=== PATIENT | female | born 2000 | race Caucasian/White ===

== ENCOUNTER 2018-05-30 15:48 | Emergency (ER) | payer OTHER, MEDICAID, SELFPAY ==
[2018-05-30 15:49] VITALS: BP 141/91; PULSE 122; RESP 17; TEMP 36.6; O2SAT 98; BMI 38.9
--- NOTE | 2018-05-30 16:19 | ED.VISSUMM ---
- ER Visit Summary Date of Service: 05/30/18 Chief Complaint: Sore throat History of Present Illness: The patient is a 17 F who presents for severe sore throat. Patient states she has had respiratory symptoms for 2 weeks, starting with sinus congestion and drainage, progressing to right ear pain and then throat pain. She developed a severe sore throat on Sunday and was seen at urgent care. She was told it could be allergies, viral or bacterial, so they started her on amoxicillin and told her if it was not better in 24 hours it was likely not bacterial. She is taking amoxicillin 3 times a day since Sunday but has had worsening of her sore throat. It is worse on the right, and she is having difficulty swallowing, pain with swallowing and breathing, and difficulty sleeping because of the pain. She is taking Tylenol to help with pain. She has subjective fevers. She denies nausea, vomiting, cough, stiff neck, headache or other complaints at this time. She has a history of hypertension. Physical Examination: Vital signs: afebrile, tachycardic at 122, no hypoxia on room air General: well nourished, well developed, in no distress Skin: warm, dry, no rash, no pallor HEENT: normocephalic and atraumatic; PERRL, EOMI, TMs are rodas and pearly with good light reflex, no bulging or erythema, no dullness. Patient has tender lymphadenopathy bilateral anterior chains, right greater than left. No meningismus. Full range of motion, neck is supple. Oropharynx shows significant asymmetry to the tonsils, with exudate, erythema and swelling of the right tonsil, and mild erythema of the left tonsil. No sublingual or submandibular fullness. Patient's voice is mildly muffled. Moist mucous membranes Cardiovascular: Tachycardic rate and rhythm without murmurs, no peripheral edema, 2+ pulses all distal extremities Respiratory: No increased work of breathing, lungs are clear to auscultation bilaterally, no rales, rhonchi or wheezing Abdominal: Abdomen is soft, nontender with normoactive bowel sounds, no guarding or rebound, no masses MSK: Moves all extremities, no deformities, normal strength Neuro: Awake and alert, oriented ?4. No facial droop, sensation and motor function intact and symmetric Test Results: Abnormal Lab Results 05/30/18 05/30/18 05/30/18 16:42 16:42 16:55 WBC 13.5 H RBC 5.05 Hgb 14.6 Hct 43.5 MCV 86.1 MCH 28.9 MCHC 33.6 RDW 12.5 RDW Differential 39.2 Plt Count 173 MPV 10.6 Immature Gran % (Auto) 0.100 Neut % (Auto) 16.5 L Lymph % (Auto) 74.0 H [place] % (Auto) 5.5 Eos % (Auto) 0.1 Baso % (Auto) 3.8 H Absolute Neuts (auto) 2.2 Absolute Lymphs (auto) 10.00 H Total Counted Not Reportable Diff Path Review May foll Atypical Lymphocytes RARE Reactive Lymphocytes 2+ Smudge Cells RARE Sodium 138 Potassium 3.9 Chloride 105 Carbon Dioxide 24.0 Anion Gap 9 BUN 6 L Creatinine 0.83 Estim Creat Clear Calc 98.10 Est GFR (MDRD) Af Amer 113 Est GFR (MDRD) Non-Af 94 BUN/Creatinine Ratio 7.2 L Glucose 92 Lactic Acid 1.2 Calcium 8.9 Serum , Qual 05/30/18 16:55 WBC RBC Hgb Hct MCV MCH MCHC RDW RDW Differential Plt Count MPV Immature Gran % (Auto) Neut % (Auto) Lymph % (Auto) [place] % (Auto) Eos % (Auto) Baso % (Auto) Absolute Neuts (auto) Absolute Lymphs (auto) Total Counted Diff Path Review Atypical Lymphocytes Reactive Lymphocytes Smudge Cells Sodium Potassium Chloride Carbon Dioxide Anion Gap BUN Creatinine Estim Creat Clear Calc Est GFR (MDRD) Af Amer Est GFR (MDRD) Non-Af BUN/Creatinine Ratio Glucose Lactic Acid Calcium Serum , Qual NEGATIVE Clinical Impression(s) from Imaging Studies Soft Tissue Neck CT 05/30/18 16:17 IMPRESSION: Possible tonsillitis and nonspecific reactive lymphadenopathy. No peritonsillar abscess noted. Electronically Signed: Brian Guzman MD at 17:43 EDT , Service support , Medications Given Discontinued Medications Dexamethasone Sodium Phosphate (Decadron) 8 mg PO.IVFORM X1 ONE Stop: 05/30/18 16:18 Last Admin: 05/30/18 16:50 Dose: 8 mg Sodium Chloride () 1,000 mls @ 1,000 mls/hr IV .Q1H ONE Stop: 05/30/18 17:14 Last Admin: 05/30/18 16:50 Dose: 1,000 mls/hr Ketorolac Tromethamine (Toradol) 15 mg IV X1 ONE Stop: 05/30/18 16:16 Last Admin: 05/30/18 16:51 Dose: 15 mg Emergency Department Course and Treatment: Patient presents with examination concerning for peritonsillar abscess or even possible deep space infection, given the history of subjective fever and the tachycardia, as well as progression while on antibiotics. It is also possible this is a viral pharyngitis and thus unresponsive to antibiotics patient was given a dose of Decadron to help with her symptoms. She was also given Toradol. She was given IV fluids. Lab work performed showing a leukocytosis of 13.5 with a lymphocyte predominance. Lactate 1.2. negative. CT soft tissue neck was performed that showed no deep space infections and no peritonsillar abscess. Because of the lymphocyte dominance on lab work, as well as earlier to improve on antibiotics with no abscess or deep space infection noted, this supports patient's symptoms as being viral in nature on reevaluation patient's heart rate had improved to 90. She felt much better and was able to swallow without pain. She had no more complaints of difficulty breathing. Patient will continue using [id number] medication for symptomatic relief. She was given 1 dose of Decadron by prescription to take in 2 days if she begins having worsening of her symptoms again. Patient was given follow-up with her primary care doctor. Patient discharged home in improved condition.. Treatment Plan: [] Disposition: [] Impression: Acute tonsillitis, viral This note was generated with [employer] dictation software. It may contain incorrect words, spelling, and punctuation that were not noted in review of the chart prior to signing ED Disposition - Plan for ED Patient: Disposition: Home or Assisted Living Chief Complaint: Sore Throat Instructions: ED Pharyngitis Viral Prescriptions: Dexamethasone [Decadron] 6 mg PO DAILY PRN 1 Days #1 tab PRN Reason: throat pain Referrals: Milo Case MD [STAFF PHYSICIAN] - 3-5 Days if not improving Wilder Goodwin MD [Primary Care Provider] - Additional Instructions: It is unlikely that your sore throat is from a bacterial infection, thus you can stop taking the antibiotic. Continue using Tylenol or Motrin as needed for pain. Drink plenty of fluids to stay hydrated. If you have return of the severe throat pain and difficulty swallowing, you may fill the dexamethasone (steroid) prescription and take the additional dose. If you have any worsening of your condition or any new concerning symptoms, please return immediately to the emergency department for another evaluation.
--- NOTE | 2018-05-30 16:23 | ED.DCSUM_ITS ---
- ER Visit Summary Date of Service: 05/30/18 Chief Complaint: Sore throat History of Present Illness: The patient is a 17 F who presents for severe sore throat. Patient states she has had respiratory symptoms for 2 weeks, starting with sinus congestion and drainage, progressing to right ear pain and then throat pain. She developed a severe sore throat on Sunday and was seen at urgent care. She was told it could be allergies, viral or bacterial, so they started her on amoxicillin and told her if it was not better in 24 hours it was likely not bacterial. She is taking amoxicillin 3 times a day since Sunday but has had worsening of her sore throat. It is worse on the right, and she is having difficulty swallowing, pain with swallowing and breathing, and difficulty sleeping because of the pain. She is taking Tylenol to help with pain. She has subjective fevers. She denies nausea, vomiting, cough, stiff neck, headache or other complaints at this time. She has a history of hypertension. Physical Examination: Vital signs: afebrile, tachycardic at 122, no hypoxia on room air General: well nourished, well developed, in no distress Skin: warm, dry, no rash, no pallor HEENT: normocephalic and atraumatic; PERRL, EOMI, TMs are rodas and pearly with good light reflex, no bulging or erythema, no dullness. Patient has tender lymphadenopathy bilateral anterior chains, right greater than left. No meningismus. Full range of motion, neck is supple. Oropharynx shows significant asymmetry to the tonsils, with exudate, erythema and swelling of the right tonsil, and mild erythema of the left tonsil. No sublingual or submandibular fullness. Patient's voice is mildly muffled. Moist mucous membranes Cardiovascular: Tachycardic rate and rhythm without murmurs, no peripheral edema , 2+ pulses all distal extremities Respiratory: No increased work of breathing, lungs are clear to auscultation bilaterally, no rales, rhonchi or wheezing Abdominal: Abdomen is soft, nontender with normoactive bowel sounds, no guarding or rebound, no masses MSK: Moves all extremities, no deformities, normal strength Neuro: Awake and alert, oriented ?4. No facial droop, sensation and motor function intact and symmetric Test Results: Abnormal Lab Results 05/30/18 05/30/18 05/30/18 16:42 16:42 16:55 WBC 13.5 H RBC 5.05 Hgb 14.6 Hct 43.5 MCV 86.1 MCH 28.9 MCHC 33.6 RDW 12.5 RDW Differential 39.2 Plt Count 173 MPV 10.6 Immature Gran % (Auto) 0.100 Neut % (Auto) 16.5 L Lymph % (Auto) 74.0 H [place] % (Auto) 5.5 Eos % (Auto) 0.1 Baso % (Auto) 3.8 H Absolute Neuts (auto) 2.2 Absolute Lymphs (auto) 10.00 H Total Counted Not Reportable Diff Path Review May foll Atypical Lymphocytes RARE Reactive Lymphocytes 2+ Smudge Cells RARE Sodium 138 Potassium 3.9 Chloride 105 Carbon Dioxide 24.0 Anion Gap 9 BUN 6 L Creatinine 0.83 Estim Creat Clear Calc 98.10 Est GFR (MDRD) Af Amer 113 Est GFR (MDRD) Non-Af 94 BUN/Creatinine Ratio 7.2 L Glucose 92 Lactic Acid 1.2 Calcium 8.9 Serum , Qual 05/30/18 16:55 WBC RBC Hgb Hct MCV MCH MCHC RDW RDW Differential Plt Count MPV Immature Gran % (Auto) Neut % (Auto) Lymph % (Auto) [place] % (Auto) Eos % (Auto) Baso % (Auto) Absolute Neuts (auto) Absolute Lymphs (auto) Total Counted Diff Path Review Atypical Lymphocytes Reactive Lymphocytes Smudge Cells Sodium Potassium Chloride Carbon Dioxide Anion Gap BUN Creatinine Estim Creat Clear Calc Est GFR (MDRD) Af Amer Est GFR (MDRD) Non-Af BUN/Creatinine Ratio Glucose Lactic Acid Calcium Serum , Qual NEGATIVE Clinical Impression(s) from Imaging Studies Soft Tissue Neck CT 05/30/18 16:17 IMPRESSION: Possible tonsillitis and nonspecific reactive lymphadenopathy. No peritonsillar abscess noted. Electronically Signed: Brian Guzman MD at 17:43 EDT , Service support , Medications Given Discontinued Medications Dexamethasone Sodium Phosphate (Decadron) 8 mg PO.IVFORM X1 ONE Stop: 05/30/18 16:18 Last Admin: 05/30/18 16:50 Dose: 8 mg Sodium Chloride () 1,000 mls @ 1,000 mls/hr IV .Q1H ONE Stop: 05/30/18 17:14 Last Admin: 05/30/18 16:50 Dose: 1,000 mls/hr Ketorolac Tromethamine (Toradol) 15 mg IV X1 ONE Stop: 05/30/18 16:16 Last Admin: 05/30/18 16:51 Dose: 15 mg Emergency Department Course and Treatment: Patient presents with examination concerning for peritonsillar abscess or even possible deep space infection, given the history of subjective fever and the tachycardia, as well as progression while on antibiotics. It is also possible this is a viral pharyngitis and thus unresponsive to antibiotics patient was given a dose of Decadron to help with her symptoms. She was also given Toradol. She was given IV fluids. Lab work performed showing a leukocytosis of 13.5 with a lymphocyte predominance. Lactate 1.2. negative. CT soft tissue neck was performed that showed no deep space infections and no peritonsillar abscess. Because of the lymphocyte dominance on lab work, as well as earlier to improve on antibiotics with no abscess or deep space infection noted, this supports patient's symptoms as being viral in nature on reevaluation patient's heart rate had improved to 90. She felt much better and was able to swallow without pain. She had no more complaints of difficulty breathing. Patient will continue using [id number] medication for symptomatic relief. She was given 1 dose of Decadron by prescription to take in 2 days if she begins having worsening of her symptoms again. Patient was given follow-up with her primary care doctor. Patient discharged home in improved condition.. Treatment Plan: [] Disposition: [] Impression: Acute tonsillitis, viral This note was generated with [employer] dictation software. It may contain incorrect words, spelling, and punctuation that were not noted in review of the chart prior to signing ED Disposition - Plan for ED Patient: Disposition: Home or Assisted Living Chief Complaint: Sore Throat Instructions: ED Pharyngitis Viral Prescriptions: Dexamethasone [Decadron] 6 mg PO DAILY PRN 1 Days #1 tab PRN Reason: throat pain Referrals: Milo Case MD [STAFF PHYSICIAN] - 3-5 Days if not improving Wilder Goodwin MD [Primary Care Provider] - Additional Instructions: It is unlikely that your sore throat is from a bacterial infection, thus you can stop taking the antibiotic. Continue using Tylenol or Motrin as needed for pain. Drink plenty of fluids to stay hydrated. If you have return of the severe throat pain and difficulty swallowing, you may fill the dexamethasone ( steroid) prescription and take the additional dose. If you have any worsening of your condition or any new concerning symptoms, please return immediately to the emergency department for another evaluation.
[2018-05-30] MEDS: 0.9% Normal Saline 1,000 ML 1000 ML IV (16:50)
[2018-05-30] MEDS: Ketorolac 15 MG/ML Vial IV (16:51)
[2018-05-30 17:23] LABS: Anion Gap 9 (5-15); BUN 6 mg/dL (7-18); BUN/Creat Ratio 7.2 RATIO (10-20); Calcium,Total 8.9 mg/dL (8.5-10.1); Chloride 105 mmol/L (98-107); Creatinine, Serum 0.83 mg/dL (0.55-1.02); EST Glomerular Filtration Rate 94 mL/min (>60); Est Glom Filt Rate - Afr Amer 113 mL/min (>60); Glucose 92 mg/dL (74-106); Potassium 3.9 mmol/L (3.5-5.1); Sodium Level 138 mmol/L (136-145)
[2018-05-30 17:29] LABS: Pregnancy, Serum, hCG Quali. NEGATIVE Negative (0-9 Nonpreg)
[2018-05-30 17:41] LABS: Lactic Acid 1.2 mmol/L (0.4-2.0)
[2018-05-30 17:43] LABS: Absolute Neutrophil Count 2.2 X10^3/uL (2.0-7.7); Basophil# 0.51 X10^3/uL; Basophil% 3.8 % (0-1); Differential Indicated SCAN CRITERIA MET; Eosinophil# 0.02 X10^3/uL; Eosinophils% 0.1 % (0-5); Hematocrit 43.5 % (37-47); Hemoglobin 14.6 g/dl (12.0-15.0); Mean Corp Hgb Conc 33.6 g/gl (32-36); Mean Corpuscular Hgb 28.9 pg (27.0-32.0); Mean Corpuscular Volume 86.1 fL (81-99); Mean Platelet Vol. 10.6 fl (6.2-12.0); Monocyte# 0.74 X10^3/uL; Monocyte% 5.5 % (0-10); Neutrophil # 2.23 X10^3/uL (2.7-7.7); Neutrophil % 16.5 % (47-70); POSITIVE COUNT NO; POSITIVE DIFFERENTIAL YES; POSITIVE MORPHOLOGY YES; Platelet Count 173 K/mm3 (150-450); RBC Distribution Width CV 12.5 % (11.6-14.6); RBC Distribution Width SD 39.2 fl (35.1-43.9); Red Blood Count 5.05 M/mm3 (4.2-5.4); White Blood Count 13.5 K/mm3 (4.4-11.0)
[2018-05-30 17:57] VITALS: BP 130/78; PULSE 84; RESP 16; O2SAT 99
[2018-05-30 18:12] LABS: Reactive Lymphocyte 2+
[2018-05-30 18:14] LABS: Smudge Cells RARE
[2018-05-30 18:15] LABS: Atypical Lymphocyte RARE %
--- NOTE | 2018-05-30 19:10 | DCINST.ED_ITS ---
ED Disposition - Plan for ED Patient: Chief Complaint: Sore Throat Instructions: ED Pharyngitis Viral Prescriptions: Dexamethasone [Decadron] 6 mg PO DAILY PRN 1 Days #1 tab PRN Reason: throat pain Referrals: Wilder Goodwin MD [Primary Care Provider] - Milo Case MD [STAFF PHYSICIAN] - 3-5 Days if not improving Additional Instructions: It is unlikely that your sore throat is from a bacterial infection, thus you can stop taking the antibiotic. Continue using Tylenol or Motrin as needed for pain. Drink plenty of fluids to stay hydrated. If you have return of the severe throat pain and difficulty swallowing, you may fill the dexamethasone ( steroid) prescription and take the additional dose. If you have any worsening of your condition or any new concerning symptoms, please return immediately to the emergency department for another evaluation.
[2018-05-30 19:34] VITALS: BP 149/87; PULSE 91; RESP 16; O2SAT 98
[2018-06-03 10:05] LABS: Pathologist Review Reviewed
== END 2018-05-30 19:35 | disposition home or self-care (01) ==
PROVIDERS: Emergency Provider Emergency Medicine; Family Provider Pediatrics; PCP Pediatrics
DX: J03.90 Acute tonsillitis, unspecified (principal); I10 Essential (primary) hypertension; R00.0 Tachycardia, unspecified; Z72.0 Tobacco use
CPT/HCPCS: 70491; 80048; 83605; 84703; 85025; 96361; 96374; 99284; J7030; Q9967; A4216

== ENCOUNTER 2018-06-02 13:42 | Emergency (ER) | payer OTHER, MEDICAID, SELFPAY ==
[2018-06-02 13:42] VITALS: BP 149/93; PULSE 120; RESP 18; TEMP 36.6; O2SAT 98; BMI 38.2
--- NOTE | 2018-06-02 14:51 | ED.VISSUMM ---
- ER Visit Summary Date of Service: 06/02/18 Chief Complaint: Sore throat History of Present Illness: The patient is a 17 F who presents with a sore throat that has been waxing and waning over the past 2 weeks. Patient states she was seen here and was given a prescription for amoxicillin. Patient states she is currently taking the amoxicillin. Patient states she was also given a dose of Decadron which helped. She states she was given 1 tablet of Decadron to go home with. Patient states she took that 2 days later which also helped. Patient states her pain is getting worse. Patient denies any fevers or chills. Patient denies any cough. Patient states her pain is worse with swallowing. Physical Examination: Vital signs are stable. Patient is afebrile. Patient is in no acute distress. Tympanic membranes are clear bilaterally. Oral mucosa is pink and moist. There is a white exudate noted on the tonsil on the right. Neck is supple. Trachea is midline. There is no cervical adenopathy noted. Heart was regular rate and rhythm. Lungs are clear and equal bilateral. There is good respiratory effort noted. Remaining physical exam is within normal limits. Emergency Department Course and Treatment: Since the patient is currently on amoxicillin I do not feel patient needs a rapid strep test done at this time. Patient was given a prescription for prednisone. Patient was instructed to follow-up with her primary care physician in 5-7 days. Patient understood and was agreeable with the plan. All questions were answered. Disposition: Discharge home Impression: Pharyngitis This note was generated with [employer] dictation software. It may contain incorrect words, spelling, and punctuation that were not noted in review of the chart prior to signing ED Disposition - Plan for ED Patient: Disposition: Home or Assisted Living Chief Complaint: Sore Throat Diagnosis: Pharyngitis Instructions: ED Strep Pharyngitis Poss Prescriptions: Prednisone [Deltasone] 60 mg PO DAILY #15 tab Referrals: Wilder Goodwin MD [NON-STAFF] -
== END 2018-06-02 15:09 | disposition home or self-care (01) ==
PROVIDERS: Emergency Provider Emergency Medicine
DX: J02.9 Acute pharyngitis, unspecified (principal); I10 Essential (primary) hypertension; Z72.0 Tobacco use
CPT/HCPCS: 99282

== ENCOUNTER 2018-10-30 12:32 | Emergency (ER) | payer OTHER, MEDICAID, SELFPAY ==
[2018-10-30 12:33] VITALS: BP 153/86; PULSE 126; RESP 14; TEMP 36.7; O2SAT 98; BMI 41.4
--- NOTE | 2018-10-30 13:03 | ED.DCSUM_ITS ---
- ER Visit Summary Date of Service: 10/30/18 Chief Complaint: Right lower posterior jaw pain History of Present Illness: The patient is a 17 F no significant past medical or surgical history. Reportedly not . Patient states for the last 3 days she has had right lower jaw pain with some mild swelling. No fever. No chills. No trauma. Physical Examination: Well-appearing young female. Vital signs are stable afebrile. She is in no distress. H EENT exam shows very good appearing dentition. There is no signs of infection. No cavities. She is able to open and close her jaw. She does have tenderness all around her last right lower molar. There is no abscess. There is no significant facial swelling. There is no trismus. She has no malocclusion. There is no gum swelling. Neck nontender no lymphadenopathy. Lungs clear to auscultation bilaterally. Heart regular rate and rhythm no murmur. Abdomen soft nontender. Otherwise exam unremarkable. Test Results: None Emergency Department Course and Treatment: To be started on Pen-Vee K in case there is an infection by explained her I do not see any signs of infection at this time. This may or may not be an impacted wisdom tooth. Motrin for pain. Ice. Treatment Plan: Follow-up with Dr. Jasson Pope for further evaluation or an oral surgeon in her insurance plan. Disposition: Discharge Impression: Acute right lower jaw pain uncertain etiology Rule out infection versus impacted wisdom tooth This note was generated with [employer] dictation software. It may contain incorrect words, spelling, and punctuation that were not noted in review of the chart prior to signing ED Disposition - Plan for ED Patient: Chief Complaint: Dental Referrals: Care Physician,No Primary [Primary Care Provider] -
--- NOTE | 2018-10-30 13:03 | ED.DEP ---
ED Disposition - Plan for ED Patient: Disposition: Home or Assisted Living Chief Complaint: Dental Instructions: ED Tooth Pain Prescriptions: Fluconazole [Diflucan] 200 mg PO X1 #1 tab Penicillin Vk [Pen-Vee K , V-Cillin K] 500 mg PO 4X/DAY #30 tab Referrals: Jasson Pope DDS [STAFF PHYSICIAN] - As soon as possible Additional Instructions: Motrin for pain and inflammation 6-800 mg 3 times a day. Ice to your right lower jaw. Penicillin 1 pill 4 times a day in case there may be an infection at this time I do not see any obvious signs of infection. Call follow-up with Dr. Jasson Ppoe and oral surgeon for further evaluation.
[2018-10-30] MEDS: HYDROcodone Bitartrate/Apap 5/325 Tablet PO (13:32)
[2018-10-30 13:33] VITALS: BP 158/112
--- OUTSIDE RECORDS SUMMARY | 2019-01-01 12:11 | XMS RPT_ITS ---
:2000 Author Organization [facility] Care Team Providers Name Role Phone Jessy Alvarez Attending Unavailable PROVIDER, UNKNOWN Primary Care Unavailable PROVIDER, UNKNOWN Referring Unavailable PROVIDER, UNKNOWN Referring Unavailable PROVIDER, UNKNOWN Primary Care Unavailable Jessy Alvarez Attending Unavailable Jessy Alvarez Attending Unavailable PROVIDER, UNKNOWN Referring Unavailable PROVIDER, UNKNOWN Primary Care Unavailable Primay Care Physicia, No Primary Care Unavailable Alli Loza Attending Unavailable VIBHA GOODWIN Primary Care Unavailable Jessy Solorzano Attending Unavailable Bryon Gusman Attending Unavailable Primay Care Physicia, No Primary Care Unavailable PROBLEMS PROBLEMS DATE TYPE CONDITION / CODE ATTENDING STATUS SOURCE 06/07/2018 Unknown J02.9 - Acute Bryon Gusman Active [facility] pharyngitis, Community unspecified / Hospital J02.9(ICD-10) Repository 05/20/2018 Admitting Elevated Jessy Alvarez [employer] Diagnosis blood-pressure System reading, w/o Repository diagnosis of htn / R03.0(ICD-10) 05/20/2018 Admitting Headache / Jessy Alvarez Active [facility] R51(ICD-10) System Repository 05/08/2018 Admitting Essential Jessy Alvarez Active [facility] (primary) System hypertension / Repository I10(ICD-10) 05/06/2018 Admitting Hyperglycemia, Jessy Alvarez Active [facility] Diagnosis unspecified / System R73.9(ICD-10) Repository 05/06/2018 Admitting Chest pain, Jessy Alvarez Active [facility] Diagnosis unspecified / System R07.9(ICD-10) Repository PROCEDURES PROCEDURES No Procedure Records FoundRESULTS RESULTS EMERGENCY DEPARTMENT Observed: 10/30/2018 Status: F Source: TILLY SUMMARY 3:27 PM [facility] REPOSITORY [facility] Medical Records Department [address] [place] [address] Emergency Department Summary 10/30/18 1301 MR#: [id number] Acct: [id number] Name: GORDO GUTHRIE Rep #: [id number] : 2000 From: Alli Loza MD PCP: Care Physician, No Primary Status: DEP ER - ER Visit Summary Date of Service: 10/30/18 Chief Complaint: Right lower posterior jaw pain History of Present Illness: The patient is a 17 F no significant past medical or surgical history. Reportedly not . Patient states for the last 3 days she has had right lower jaw pain with some mild swelling. No fever. No chills. No trauma. Physical Examination: Well-appearing young female. Vital signs are stable afebrile. She is in no distress. H EENT exam shows very good appearing dentition. There is no signs of infection. No cavities. She is able to open and close her jaw. She does have tenderness all around her last right lower molar. There is no abscess. There is no significant facial swelling. There is no trismus. She has no malocclusion. There is no gum swelling. Neck nontender no lymphadenopathy. Lungs clear to auscultation bilaterally. Heart regular rate and rhythm no murmur. Abdomen soft nontender. Otherwise exam unremarkable. Test Results: None Emergency Department Course and Treatment: To be started on Pen-Vee K in case there is an infection by explained her I do not see any signs of infection at this time. This may or may not be an impacted wisdom tooth. Motrin for pain. Ice. Treatment Plan: Follow-up with Dr. Jasson Pope for further evaluation or an oral surgeon in her insurance plan. Disposition: Discharge Impression: Acute right lower jaw pain uncertain etiology Rule out infection versus impacted wisdom tooth This note was generated with Outlisten dictation software. It may contain incorrect words, spelling, and punctuation that were not noted in review of the chart prior to signing ED Disposition - Plan for ED Patient: Chief Complaint: Dental Referrals: Care Physician,No Primary [Primary Care Provider] - What to do if you have Problems For any increased pain, shortness of breath, bleeding, nausea or vomiting, chest pain, or any unexpected problems, contact your Primary Care Provider. Call [facility] ([phone]) or report to the closest Emergency Room. Call 911 if necessary. 10/30/18 1527 <Electronically signed by Alli Loza MD> Date Alli Loza MD Cosigner Signature (If Indicated): Date CC: No Primary Care Physician DISCHARGE INSTRUCTION Observed: 10/30/2018 Status: F Source: TILLY 3:27 PM [facility] REPOSITORY [facility] Medical Records Department [address] [place] [address] Discharge Instruction 10/30/18 1303 MR#: [id number] Acct: [id number] Name: GORDO GUTHRIE Rep #: [id number] : 2000 17 From: Alli Loza MD PCP: Care Physician, No Primary Status: DEP ER ED Disposition - Plan for ED Patient: Disposition: Home or Assisted Living Chief Complaint: Dental Instructions: ED Tooth Pain Prescriptions: Fluconazole [Diflucan] 200 mg PO X1 #1 tab Penicillin Vk [Pen-Vee K , V-Cillin K] 500 mg PO 4X/DAY #30 tab Referrals: Jasson Pope DDS [STAFF PHYSICIAN] - As soon as possible Additional Instructions: Motrin for pain and inflammation 6-800 mg 3 times a day. Ice to your right lower jaw. Penicillin 1 pill 4 times a day in case there may be an infection at this time I do not see any obvious signs of infection. Call follow-up with Dr. Jasson Pope and oral surgeon for further evaluation. What to do if you have Problems For any increased pain, shortness of breath, bleeding, nausea or vomiting, chest pain, or any unexpected problems, contact your Primary Care Provider. Call [facility] ([phone]) or report to the closest Emergency Room. Call 911 if necessary. 10/30/18 1527 <Electronically signed by Alli Loza MD> Date Alli Loza MD Cosigner Signature (If Indicated): Date CC: No Primary Care Physician EMERGENCY DEPARTMENT Observed: 06/02/2018 Status: F Source: TILLY SUMMARY 2:57 PM [facility] REPOSITORY [facility] Medical Records Department [address] [place] [address] Emergency Department Summary 06/02/18 1451 MR#: [id number] Acct: [id number] Name: GORDO GUTHRIE Rep #: [id number] : 2000 17 From: Bryon Gusman DO PCP: Care Physician, No Primary Status: REG ER - ER Visit Summary Date of Service: 06/02/18 Chief Complaint: Sore throat History of Present Illness: The patient is a 17 F who presents with a sore throat that has been waxing and waning over the past 2 weeks. Patient states she was seen here and was given a prescription for amoxicillin. Patient states she is currently taking the amoxicillin. Patient states she was also given a dose of Decadron which helped. She states she was given 1 tablet of Decadron to go home with. Patient states she took that 2 days later which also helped. Patient states her pain is getting worse. Patient denies any fevers or chills. Patient denies any cough. Patient states her pain is worse with swallowing. Physical Examination: Vital signs are stable. Patient is afebrile. Patient is in no acute distress. Tympanic membranes are clear bilaterally. Oral mucosa is pink and moist. There is a white exudate noted on the tonsil on the right. Neck is supple. Trachea is midline. There is no cervical adenopathy noted. Heart was regular rate and rhythm. Lungs are clear and equal bilateral. There is good respiratory effort noted. Remaining physical exam is within normal limits. Emergency Department Course and Treatment: Since the patient is currently on amoxicillin I do not feel patient needs a rapid strep test done at this time. Patient was given a prescription for prednisone. Patient was instructed to follow-up with her primary care physician in 5-7 days. Patient understood and was agreeable with the plan. All questions were answered. Disposition: Discharge home Impression: Pharyngitis This note was generated with Outlisten dictation software. It may contain incorrect words, spelling, and punctuation that were not noted in review of the chart prior to signing ED Disposition - Plan for ED Patient: Disposition: Home or Assisted Living Chief Complaint: Sore Throat Diagnosis: Pharyngitis Instructions: ED Strep Pharyngitis Poss Prescriptions: Prednisone [Deltasone] 60 mg PO DAILY #15 tab Referrals: Vibha Goodwin MD [NON-STAFF] - What to do if you have Problems For any increased pain, shortness of breath, bleeding, nausea or vomiting, chest pain, or any unexpected problems, contact your Primary Care Provider. Call [facility] ([phone]) or report to the closest Emergency Room. Call 911 if necessary. 06/02/18 4079 <Electronically signed by Bryon Gusman DO> Date Bryon Gusman DO Cosigner Signature (If Indicated): Date CC: No Primary Care Physician EMERGENCY DEPARTMENT Observed: 05/31/2018 Status: F Source: TILLY SUMMARY 1:26 AM [facility] REPOSITORY [facility] Medical Records Department [address] [place] [address] Emergency Department Summary 05/30/18 1619 MR#: [id number] Acct: [id number] Name: GORDO GUTHRIE Rep #: [id number] : 2000 17 From: Jessy Solorzano MD PCP: Vibha Goodwin MD Status: DEP ER - ER Visit Summary Date of Service: 05/30/18 Chief Complaint: Sore throat History of Present Illness: The patient is a 17 F who presents for severe sore throat. Patient states she has had respiratory symptoms for 2 weeks, starting with sinus congestion and drainage, progressing to right ear pain and then throat pain. She developed a severe sore throat on Sunday and was seen at urgent care. She was told it could be allergies, viral or bacterial, so they started her on amoxicillin and told her if it was not better in 24 hours it was likely not bacterial. She is taking amoxicillin 3 times a day since Sunday but has had worsening of her sore throat. It is worse on the right, and she is having difficulty swallowing, pain with swallowing and breathing, and difficulty sleeping because of the pain. She is taking Tylenol to help with pain. She has subjective fevers. She denies nausea, vomiting, cough, stiff neck, headache or other complaints at this time. She has a history of hypertension. Physical Examination: Vital signs: afebrile, tachycardic at 122, no hypoxia on room air General: well nourished, well developed, in no distress Skin: warm, dry, no rash, no pallor HEENT: normocephalic and atraumatic; PERRL, EOMI, TMs are rodas and pearly with good light reflex, no bulging or erythema, no dullness. Patient has tender lymphadenopathy bilateral anterior chains, right greater than left. No meningismus. Full range of motion, neck is supple. Oropharynx shows significant asymmetry to the tonsils, with exudate, erythema and swelling of the right tonsil, and mild erythema of the left tonsil. No sublingual or submandibular fullness. Patient's voice is mildly muffled. Moist mucous membranes Cardiovascular: Tachycardic rate and rhythm without murmurs, no peripheral edema, 2+ pulses all distal extremities Respiratory: No increased work of breathing, lungs are clear to auscultation bilaterally, no rales, rhonchi or wheezing Abdominal: Abdomen is soft, nontender with normoactive bowel sounds, no guarding or rebound, no masses MSK: Moves all extremities, no deformities, normal strength Neuro: Awake and alert, oriented 4. No facial droop, sensation and motor function intact and symmetric Test Results: Abnormal Lab Results WBC 13.5 H RBC 5.05 Hgb 14.6 Hct 43.5 MCV 86.1 MCH 28.9 WBC RBC Hgb Clinical Impression(s) from Imaging Studies Soft Tissue Neck CT 05/30/18 16:17 IMPRESSION: Possible tonsillitis and nonspecific reactive lymphadenopathy. No peritonsillar abscess noted. Electronically Signed: Brian Guzman MD at 17:43 EDT , Service support , Medications Given Discontinued Medications Dexamethasone Sodium Phosphate (Decadron) 8 mg PO.IVFORM X1 ONE Stop: 05/30/18 16:18 Last Admin: 05/30/18 16:50 Dose: 8 mg Sodium Chloride () 1,000 mls @ 1,000 mls/hr IV .Q1H ONE Stop: 05/30/18 17:14 Last Admin: 05/30/18 16:50 Dose: 1,000 mls/hr Ketorolac Tromethamine (Toradol) 15 mg IV X1 ONE Stop: 05/30/18 16:16 Last Admin: 05/30/18 16:51 Dose: 15 mg Emergency Department Course and Treatment: Patient presents with examination concerning for peritonsillar abscess or even possible deep space infection, given the history of subjective fever and the tachycardia, as well as progression while on antibiotics. It is also possible this is a viral pharyngitis and thus unresponsive to antibiotics patient was given a dose of Decadron to help with her symptoms. She was also given Toradol. She was given IV fluids. Lab work performed showing a leukocytosis of 13.5 with a lymphocyte predominance. Lactate 1.2. negative. CT soft tissue neck was performed that showed no deep space infections and no peritonsillar abscess. Because of the lymphocyte dominance on lab work, as well as earlier to improve on antibiotics with no abscess or deep space infection noted, this supports patient's symptoms as being viral in nature on reevaluation patient's heart rate had improved to 90. She felt much better and was able to swallow without pain. She had no more complaints of difficulty breathing. Patient will continue using [id number] medication for symptomatic relief. She was given 1 dose of Decadron by prescription to take in 2 days if she begins having worsening of her symptoms again. Patient was given follow-up with her primary care doctor. Patient discharged home in improved condition.. Treatment Plan: [] Disposition: [] Impression: Acute tonsillitis, viral This note was generated with Outlisten dictation software. It may contain incorrect words, spelling, and punctuation that were not noted in review of the chart prior to signing ED Disposition - Plan for ED Patient: Disposition: Home or Assisted Living Chief Complaint: Sore Throat Instructions: ED Pharyngitis Viral Prescriptions: Dexamethasone [Decadron] 6 mg PO DAILY PRN 1 Days #1 tab PRN Reason: throat pain Referrals: Milo Case MD [STAFF PHYSICIAN] - 3-5 Days if not improving Vibha Goodwin MD [Primary Care Provider] - Additional Instructions: It is unlikely that your sore throat is from a bacterial infection, thus you can stop taking the antibiotic. Continue using Tylenol or Motrin as needed for pain. Drink plenty of fluids to stay hydrated. If you have return of the severe throat pain and difficulty swallowing, you may fill the dexamethasone (steroid) prescription and take the additional dose. If you have any worsening of your condition or any new concerning symptoms, please return immediately to the emergency department for another evaluation. What to do if you have Problems For any increased pain, shortness of breath, bleeding, nausea or vomiting, chest pain, or any unexpected problems, contact your Primary Care Provider. Call [facility] ([phone]) or report to the closest Emergency Room. Call 911 if necessary. 05/31/18 0126 <Electronically signed by Jessy Solorzano MD> Date Jessy Solorzano MD Cosigner Signature (If Indicated): Date CC: Vibha Goodwin MD DISCHARGE INSTRUCTION Observed: 05/31/2018 Status: F Source: SERJIO 12:16 AM [facility] REPOSITORY [facility] Medical Records Department [address] [place] [address] Discharge Instruction 05/30/18 1908 MR#: [id number] Acct: [id number] Name: GORDO GUTHRIE Rep #: [id number] : 2000 17 From: Jessy Solorzano MD PCP: Vibha Goodwin MD Status: DEP ER ED Disposition - Plan for ED Patient: Chief Complaint: Sore Throat Instructions: ED Pharyngitis Viral Prescriptions: Dexamethasone [Decadron] 6 mg PO DAILY PRN 1 Days #1 tab PRN Reason: throat pain Referrals: Vibha Goodwin MD [Primary Care Provider] - Milo Case MD [STAFF PHYSICIAN] - 3-5 Days if not improving Additional Instructions: It is unlikely that your sore throat is from a bacterial infection, thus you can stop taking the antibiotic. Continue using Tylenol or Motrin as needed for pain. Drink plenty of fluids to stay hydrated. If you have return of the severe throat pain and difficulty swallowing, you may fill the dexamethasone (steroid) prescription and take the additional dose. If you have any worsening of your condition or any new concerning symptoms, please return immediately to the emergency department for another evaluation. What to do if you have Problems For any increased pain, shortness of breath, bleeding, nausea or vomiting, chest pain, or any unexpected problems, contact your Primary Care Provider. Call [facility] ([phone]) or report to the closest Emergency Room. Call 911 if necessary. 05/31/18 0016 <Electronically signed by Jessy Solorzano MD> Date Jessy Solorzano MD Cosigner Signature (If Indicated): Date CC: Vibha Goodwin MD ,SERUM,HCG QUALI. Collected: Status: F Source: SERJIO 05/30/2018 4:55 PM [facility] REPOSITORY TYPE CODE TESTS RESULT OUT OF REFERENCE UNITS RANGE LAB L700.6700 =>Qualitative mIU/mL Normal HCG Qual < 1 triggr LAB L700.7000 0-9 Nonpreg Negative Normal HCGSQUAL NEGATIVE Performed By: #### L700.6800 #### [facility] [address] [place], [place], [address] LACTIC ACID Collected: 05/30/2018 Status: F Source: SERJIO 4:55 PM [facility] REPOSITORY Order Comment: Yes/No query for Sepsis Lactate Rule Y TYPE CODE TESTS RESULT OUT OF RANGE REFERENCE UNITS LAB L503.6005 0.4-2.0 mmol/L Normal LACTIC ACID 1.2 Performed By: #### L503.6005 #### [facility] [address] [place], [place], [address] BASIC METABOLIC Collected: 05/30/2018 Status: F Source: SERJIO PROFILE (BMP) 4:42 PM [facility] REPOSITORY TYPE CODE TESTS RESULT OUT OF RANGE REFERENCE UNITS LAB L501.0100 74-106 mg/dL Normal GLU 92 Result Comment: Please note revised GLUCOSE reference range effective 2017. LAB L501.1000 7-18 mg/dL Low BUN 6 LAB L501.1100 0.55-1.02 mg/dL Normal CREAT,SERUM 0.83 Result Comment: The validity of the calculated GFR AND GFRAA in patients over 70 years has not been determined. Clinical correlation is essential. LAB L501.1110 >60 mL/min Normal EST GFR 94 Result Comment: Non- GFR Calc LAB L501.1115 >60 mL/min Normal EST GFR - AA 113 Result Comment: GFR Calc LAB L501.1255 ml/min Normal Estimated CRCL 98.10 LAB L501.1300 10-20 RATIO Low BUN/CRE 7.2 LAB L501.2200 8.5-10 mg/dL Normal .1 CA 8.9 LAB L501.5300 136-14 mmol/L Normal 5 NA 138 LAB L501.5600 3.5-5. mmol/L Normal 1 K 3.9 LAB L501.5900 98-107 mmol/L Normal CL 105 LAB L501.6100 21.0-3 mmol/L Normal 2.0 CO2 24.0 LAB L501.6200 5-15 Normal GAP 9 Performed By: #### L500.2500 #### [facility] [address] [place], [place], [address] CBC W/DIFF, AUTOMATED Collected: 05/30/2018 Status: C Source: TILLY 4:42 PM [facility] REPOSITORY TYPE CODE TESTS RESULT OUT OF RANGE REFERENCE UNITS LAB L100.1000 4.4-11.0 K/mm3 High WBC 13.5 LAB L100.1200 4.2-5.4 M/mm3 Normal RBC 5.05 LAB L100.1300 12.0-15.0 g/dl Normal HGB 14.6 LAB L100.1400 37-47 % Normal HCT 43.5 LAB L100.1500 81-99 fL Normal MCV 86.1 LAB L100.1600 27.0-32.0 pg Normal MCH 28.9 LAB L100.1700 32-36 g/gl Normal MCHC 33.6 LAB L100.1810 11.6-14.6 % Normal RDW CV 12.5 LAB L100.1820 35.1-43.9 fl Normal RDW SD 39.2 LAB L100.1900 150-450 K/mm3 Normal PLT 173 LAB L100.2000 6.2-12.0 fl Normal MPV 10.6 LAB L100.2100 47-70 % Low NEUT% 16.5 LAB L100.2200 19-41 % High LY% 74.0 LAB L100.2300 0-10 % Normal MONO% 5.5 LAB L100.2400 0-5 % Normal EO% 0.1 LAB L100.2500 0-1 % High BASO% 3.8 LAB L100.2550 0.0-0.9 % Normal IM GRAN % 0.100 Result Comment: IG% - Immature Granulocytes (promyelocytes, myelocytes and metamyelocytes) > 1% indicates that a LEFT SHIFT is Present. LAB L100.2620 2.0-7.7 X10 3/uL Normal Absolute Neut 2.2 LAB L100.2720 0.83-4.51 X10 3/ul High Absolute Lymph 10.00 LAB L100.4600 % Normal ATYPICAL LYMPH RARE LAB L100.4700 2+ Normal REACTIVE LYMPH LAB L100.5200 Normal SMUDG RARE LAB L100.9900 Normal PATH REV Reviewed Result Comment: Reactive lymphocytosis. Clinical correlation necessary. Martínez Solomon D.O. 06/03/18 Pathologist comment added AMENDED REPORT 06/03/18 1004 PATH REV previously reported as: February Performed By: #### L100.0100 #### [facility] [address] [place], [address] SOFT TISSUE NECK WITH Observed: 05/30/2018 Status: F Source: TILLY CONTRAST 4:19 PM [facility] REPOSITORY [facility] Imaging Services [address] [place] [address] Soft Tissue Neck WITH Contrast MR#: [id number] Acct: [id number] Name: GORDO GUTHRIE OMAR Rep #: [id number] : 2000 F 17 From: Brian Guzman MD PCP: Vibha Goodwin MD Status: REG ER Study: Soft Tissue Neck WITH Contrast Date of Exam: 05/30/18 Exam# [id number] Ordering Dr: Jessy Solorzano MD STUDY: CT SOFT TISSUE NECK WITH CONTRAST REASON FOR EXAM: Female, 17 years old. Sore throat and difficulty swallowing RADIATION DOSAGE (If Supplied By Facility): CTDIvol = ( 20.38 ) mGy, DLP = ( 605.62 ) mGycm TECHNIQUE: The patient was scanned in a multi-detector CT scanner. High resolution transaxial imaging was performed following intravenous administration of 75ML ml of Isovue 300 contrast material. Sagittal and coronal images were reconstructed. Individualized dose optimization techniques were used for this CT. COMPARISON: None. FINDINGS: Normal bilateral parotid glands. Normal bilateral general office worker spaces. Normal bilateral parapharyngeal spaces. Normal bilateral carotid spaces. Normal bilateral sublingual and submandibular glands and spaces. Normal visualized nasopharynx. Normal retropharyngeal space. Normal perivertebral space. Tonsils appear somewhat prominent, right greater than left. No peritonsillar abscess noted. The visualized tongue, tongue base and oropharynx are normal. Prominent cervical lymph nodes at all levels measuring up to 2 x 1.3 cm in the jugulodigastric region on the right. There is no demonstrated solid or cystic mass lesion. There is no abnormal contrast enhancement. Normal epiglottis, bilateral vallecula and hypopharynx. The pre-epiglottic and paraglottic adipose spaces are normal. Normal visualized bilateral piriform sinuses, aryepiglottic folds, vocal cords, and arytenoid-cricoid articulations. Normal subglottic trachea. Normal bilateral lobes of the thyroid gland. Normal visualized pulmonary apices. Normal visualized paranasal sinuses. Normal visualized cervical spine. CT/Soft Tissue Neck WITH Contrast IMPRESSION: Possible tonsillitis and nonspecific reactive lymphadenopathy. No peritonsillar abscess noted. Electronically Signed: Brian Guzman MD at 17:43 EDT , Service support , CC: Vibha Goodwin MD; Jessy Solorzano MD : Signed US RETROPERITONEAL LIMITED Observed: 05/08/2018 Status: F Source: [facility] 4:08 PM SYSTEM REPOSITORY Patient Name: GORDO GUTHRIE Ultrasound Exam Date/Time 05/08/2018 14:33:05 EDT Exam US Retroperitoneal Limited Ordering Physician Nga INGRAM, JENNIFER MONTGOMERY Accession Number [id number] CPT4 Codes 69632 () Reason For Exam HTN r/o renal etiolgies Report Exam type: Ultrasound retroperitoneum. EXAM DATE AND TIME: 05/08/2018 2:33 PM EDT INDICATION: 17 years Female with elevated blood pressure COMPARISON: None Technique: Grayscale sonographic images were obtained of the kidneys and bladder. Color Doppler was utilized. FINDINGS: RIGHT KIDNEY: Size: 11.7 cm in craniocaudal dimension Echogenicity: normal Parenchymal thickness: normal Contour: smooth Pelvicalyceal dilatation: none Calculus: none Mass: none Cyst: none LEFT KIDNEY: Size: 10.1 cm in craniocaudal dimension Echogenicity: normal Parenchymal thickness: normal Contour: smooth Pelvicalyceal dilatation: none Calculus: none Mass: none Cyst: none Bladder: normal IMPRESSION: No evidence of renal mass or hydronephrosis. Report Dictated on Final Dictating Physician: MD CUMMINS NICHOLAS Signed Date and Time: 05/08/2018 4:11 pm Signed by: MD CUMMINS NICHOLAS Transcribed Date and Time: 05/08/2018 4:12 ALLERGIES ALLERGIES DATE TYPE / CODE NAME / CODE REACTION SEVERITY SOURCE 10/30/2018 Drug No Known Unknown [facility] Allergy/4160 Allergies/F00 Hospital 11061(SNOMED [id number](RXNOR Repository CT) M) ENCOUNTERS ENCOUNTERS ADMIT/DISCHARGE ACCOUNT NUMBER ADMITTING ENCOUNTER LOCATION SOURCE CLASS 10/30/2018/10/30/19 [id number] Emergency [facility] 19 [facility] ding:ED Repository 06/02/2018/06/02/20 [id number] Emergency [facility] 18 [facility] ding:ED Repository 05/30/2018/05/30/20 [id number] Emergency [address] ding:ED Repository 05/20/2018 [id number] Ambulatory [facility] Repository 05/08/2018 [id number] Ambulatory [facility] Repository 05/06/2018 [id number] Ambulatory [facility] Repository PAYERS PAYERS ENCOUNTER GUARANTOR PAYER SUBSCRIBER SOURCE 10/30/2018 GORDO Bassett [id number] Insurance:JENA RAHMAN [facility] Number: [facility] [id number] Repository , [place] [address]Ibq: Date:[id number], [place] ) [address]GO: 10/30/2018 Secondary GORDO Trevino Serjio Insurance:CARESOURCEP SHILLINGDOB: Community olicy Number: [id number] Hospital [id number] Repository Date:2018-10-30[address]ATTN: [place] [address]PA: 10/30/2018 Tertiary NOT GIVENUNK [place] Insurance:SELF PAY [facility] Number: Effective Repository Date:2018-10-30 06/02/2018 GORDO Trevino Primary ILSA Bassett [id number] Insurance:[facility] Number: [facility] [id number] [place] [address]Zbg: Date:[id number] [address] [place] [address] () [address]XL: 06/02/2018 Secondary GORDO Trevino Serjio Insurance:CARESOURCEP SHILLINGDOB: [facility] Number: [id number] Hospital [id number] Repository Date:2018-06-02[address]ATTN[place] [address]BP: 06/02/2018 Tertiary NOT GIVENUNK [place] Insurance:SELF PAY [facility] Number: Effective Repository Date:2018-06-02 05/30/2018 GORDO NELSON Primary ILSA Bassett [id number] Insurance:[facility] Number: [facility] [id number] Repository [place] Date:2018-05-30 20[address]Xmz: () 05/30/2018 Secondary GORDO NELSON [place] Insurance:CARESOURCEP SHILLINGDOB: [facility] olic Number: [id number] Hospital [id number] Repository Date:2018-05-30[address]ATTN: [place] [address]KW: 05/30/2018 Tertiary NOT GIVENUNK [place] Insurance:SELF PAY [facility] Number: Effective Repository Date:2018-05-30 05/20/2018 Gordo Trevino Primary ilsa [facility] ShillingDOB: Insurance: shillingUNK System [id number] [facility] Repository [place] Number: Effective Rd Date: , [place] [address]Wrr: () 05/20/2018 Secondary Caro [facility] Insurance:CareSourceP ShillingDOB: System olicy Number: [id number] Repository Effective Date: 05/08/2018 [facility]ordo [facility]ino [facility] Shilling[facility] Insurance: shillingUNK System [id number] [facility] Repository [address]: [address] Date: , [place] [address]Uhv: () 05/08/2018 Secondary Caro [facility] Insurance:CareSourceP ShillingDOB: System olicy Number: [id number] Repository Effective Date: 05/06/2018 Gordo Trevino [facility] Shilling[facility]: Insurance: shillingUNK System [id number] [facility] Repository [address] Number: [address] Date: , [place] [address]Yto: () 05/06/2018 Secondary Caro [facility] Insurance:CareSourceP ShillingDOB: System olicy Number: [id number] Repository Effective Date:
== END 2018-10-30 13:40 | disposition home or self-care (01) ==
PROVIDERS: Emergency Provider Emergency Medicine
DX: R68.84 Jaw pain (principal); K08.89 Other specified disorders of teeth and supporting structures; Z72.0 Tobacco use
CPT/HCPCS: 99282

== ENCOUNTER 2019-12-10 10:51 | Emergency (ER) | payer MEDICAID, SELFPAY ==
[2019-12-10 10:53] VITALS: BP 155/100; PULSE 98; RESP 17; TEMP 37.3; O2SAT 97; BMI 44.1
--- NOTE | 2019-12-10 11:15 | CT_ITS ---
STUDY: CT BRAIN WITHOUT CONTRAST REASON FOR EXAM: Female, 19 years old. 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 Individualized dose optimization techniques were used for this CT. COMPARISON: No relevant priors. FINDINGS: Normal soft tissue structures. Normal calvarium. Normal size ventricles and extra-axial spaces for the patient''s age. Normal white matter tracts of the cerebral hemispheres. Normal basal ganglia and thalami. Normal brainstem. Normal cerebellum. There is no intracranial hemorrhage. There are no findings of an acute ischemic infarction. Normal visualized paranasal sinuses. CT/Brain/Head without Contrast IMPRESSION: Normal unenhanced CT scan of the brain. Electronically Signed: Klaudia Gomez MD at 12:05 EST Tel , Service support ,
--- NOTE | 2019-12-10 11:18 | ED.DCSUM_ITS ---
- ER Visit Summary Date of Service: 12/10/19 Chief Complaint: Visual loss History of Present Illness: The patient is a 19 F who presents with vision loss in her right eye that has gradually gotten worse over the past several months. 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 Ophthalmology referred to the emergency department for evaluation for possible pseudotumor cerebri. Patient states that the lateral half of her vision in her right eye is lost. Patient admits to a generalized throbbing headache. Patient admits to some pain in her neck that began when she woke up today. Patient denies any paresthesias or weakness. Physical Examination: Vital signs are stable. Patient is afebrile. Patient is in no acute distress. Pupils are dilated. Funduscopic exam does show papilledema. Cranial nerves II through XII are intact. Strength is 5/5 bilaterally upper and lower extremities. There are no sensory deficits noted. Heart was regular rate and rhythm. Lungs are clear and equal bilaterally. Abdomen is soft. Bowel sounds are normal. There is no tenderness. Oral mucosa is pink and moist. Neck is supple. Trachea is midline. There is no JVD. There is some mild cervical paraspinal tenderness. There is no midline tenderness. There is good range of motion of the cervical spine. Test Results: CT scan of the brain was obtained. There is no acute intracranial abnormality. This was interpreted by the radiologist and reviewed by myself. Emergency Department Course and Treatment: Patient refused any lab draw or IV start. Patient refused neurology consult here. Patient was advised that this could be an acute intracranial abnormality such as pseudotumor cerebri that would need to be treated emergently. Patient understands and will sign out AGAINST MEDICAL ADVICE. Patient states she has a neurologist that she will follow-up with. Patient understands the risks and benefits. Patient will sign out AGAINST MEDICAL ADVICE. Disposition: Discharge AGAINST MEDICAL ADVICE Impression: 1. Partial vision loss 2. Headache This note was generated with [employer] software. It may contain incorrect words, spelling, and punctuation that were not noted in review of the chart prior to signing ED Disposition - Plan for ED Patient: Disposition: Against Medical Advice Diagnosis: Visual loss, Headache Referrals: Alli Aguilar MD [Primary Care Provider] - 3-5 Days
[2019-12-10 11:20] VITALS: BP 159/102
[2019-12-10 12:11] VITALS: PULSE 97; O2SAT 97
[2019-12-10] MEDS: Ibuprofen 600 MG Tablet 800 MG PO (12:43)
--- NOTE | 2019-12-10 13:25 | ED.RN ---
PT STATED SHE WANTED TO SIGN OUT AMA BECAUSE SHE HAS A APPT AT 1415. STATES SHE HAS A NEUROLOGIST AND DOESN'T WANT TO TALK TO ANOTHER ONE HERE. PHYSICIAN WENT IN TO TALK WITH THE PT AND SHE REMAINED ADAMANT SHE IS LEAVING AMA.
--- NOTE | 2019-12-10 13:32 | ED.RN ---
1315-aware of new order for neuro consult but pt and sig other demanding to see and wanting to just leave. stated, i have an appt with my neurologist this month. isint my cat scan back yet pt aware that only half workup done and that optomologist wanted a neuro consult. dr. wang in to talk with pt but still wanting to leave. 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
== END 2019-12-10 13:35 | disposition left against medical advice (07) ==
PROVIDERS: Emergency Provider Emergency Medicine; PCP Family Medicine
DX: H54.61 Unqualified visual loss, right eye, normal vision left eye (principal); R51 Headache; H47.10 Unspecified papilledema; M54.2 Cervicalgia; E03.9 Hypothyroidism, unspecified; Z72.0 Tobacco use; Z79.899 Other long term (current) drug therapy
CPT/HCPCS: 70450; 99282

== ENCOUNTER 2022-01-24 12:45 | Outpatient (CLI) | payer MEDICAID, SELFPAY ==
--- NOTE | 2022-01-24 12:46 | MRI_ITS ---
EXAM: MR HEAD WITHOUT INTRAVENOUS CONTRAST CLINICAL INDICATION: Pseudotumor cerebri; migraine headaches TECHNIQUE: Multiplanar and multisequence MR images of the brain were obtained without intravenous contrast. This report was created using [employer] report generation technology. COMPARISON: CT head without contrast 12/10/2019. FINDINGS: BRAIN AND EXTRA-AXIAL SPACES: No focal signal abnormalities throughout the brain parenchyma. No intra- or extra-axial hemorrhage. No evidence of acute infarct. No intracranial mass or mass effect. Normal rodas matter and white matter. Posterior fossa structures are normal. Normal ventricles and cisterns. SELLA: Unremarkable. Normal sella turcica, pituitary gland, infundibular stalk, optic chiasm and hypothalamus. AUDITORY SYSTEM: Unremarkable. The internal auditory canals are patent. BONES/JOINTS: Unremarkable. No discrete lytic or blastic abnormalities. SINUSES: Unremarkable as visualized. Clear. MASTOID AIR CELLS: Unremarkable as visualized. Clear. ORBITS: Unremarkable as visualized. Both globes, extraocular muscles, optic nerves and retrobulbar fat appear unremarkable. VASCULATURE: Unremarkable as visualized. Normal flow voids in the major intracranial circulation. MRI/Brain without Contrast IMPRESSION: 1. Normal MRI brain without intravenous contrast. 2. No significant interval change when compared to CT head scan of 12/10/2019. Electronically Signed: Stew Lindsey MD at 14:50 EDT ,
--- NOTE | 2022-01-24 12:46 | MRI_ITS ---
STUDY: EXAMINATION - MRV BRAIN WITHOUT CONTRAST REASON FOR EXAM: Female, 21 years old. Pseudotumor cerebri; migraine headaches TECHNIQUE: 3D [id number] (TOF) imaging was performed in a giovanni MRI scanner. COMPARISON: None. FINDINGS: Normal flow within the superior sagittal sinus. Normal flow within the superficial cortical veins. Normal flow within the paired internal cerebral veins, vein of Michael and straight sinus. Normal flow within the bilateral transverse and sigmoid sinuses. Symmetrical high-grade stenosis at the junction of both transverse sinuses and respective sigmoid sinuses. Normal flow within the bilateral jugular bulbs. MRI/MRV Head Without Contrast IMPRESSION: 1. Symmetrical high-grade stenosis at the junction of the bilateral transverse sinuses and there respective sigmoid sinuses. 2. Normal remaining dural sinuses, superficial cerebral veins and deep cerebral veins. Electronically Signed: Stew Lindsey MD at 14:52 EDT ,
[2022-01-24 13:16] LABS: CREATININE FINGERSTICK 0.9 mg/dL (0.55-1.02); EGFR FINGERSTICK > 60.0000 mL/min (>60)
== END 2022-01-24 23:59 | disposition home or self-care (01) ==
LOC: MRI 12:46
PROVIDERS: PCP Family Medicine; Referring Provider Psychiatry & Neurology Neurology; Visit Provider Psychiatry & Neurology Neurology
DX: G93.2 Benign intracranial hypertension (principal); G43.909 Migraine, unspecified, not intractable, without status migrainosus
CPT/HCPCS: 70544; 70551